=== PATIENT | male | born 1995 | race Caucasian/White ===

== ENCOUNTER 2017-09-30 02:19 | Emergency (ER) | payer MEDICAID, SELFPAY ==
[2017-09-30 02:22] VITALS: BP 140/83; PULSE 82; RESP 16; TEMP 37.1; O2SAT 98; BMI 23.2
--- NOTE | 2017-09-30 02:34 | ED.DCSUM_ITS ---
- ER Visit Summary Date of Service: 09/30/17 Chief Complaint: [] Sore throat History of Present Illness: The patient is a 21 M presents with sore throat for last 2 days gradual onset continuous moderate severity worse by swallowing. Relieved with Tylenol. Denies any associated symptoms. He does have a history of remote strep throat. Physical Examination: [] Vital signs reviewed General: Well-nourished well-developed Head: Normocephalic atraumatic Eyes: Pupils equal round and reactive to light extraocular movements intact ENT: TMs clear no hemotympanum no trauma. Pharynx is reddened without exudate. Tonsils are red without exudate. 2+ bilateral Neck: Nontender full range of motion Cardiovascular: Regular rate rhythm no murmurs normal S1-S2 Respiratory: No distress clear to auscultation bilaterally chest nontender Abdomen: Soft nontender nondistended normal bowel sounds no masses Back: Nontender no CVA tenderness Extremities: Nontender active range of motion ?4 extremities no trauma Skin: Normal color no trauma Neuro alert oriented cranial nerves II through XII intact normal strength sensation reflexes Test Results: [] Emergency Department Course and Treatment: [] At this time I discussed with the patient we could do a rapid strep test. He would rather be treated with antibiotics empirically and not wait for the exam. I think this is reasonable given the fact that he has bright red swollen tonsils and no respiratory symptoms. He was given amoxicillin and ibuprofen will continue these at home. He will also do salt water gargles. Treatment Plan: [] Disposition: [] Impression: [] Tonsillitis bilateral This note was generated with [employer] dictation software. It may contain incorrect words, spelling, and punctuation that were not noted in review of the chart prior to signing ED Disposition - Plan for ED Patient: Chief Complaint: Sore Throat Referrals: Cleve Fajardo [Primary Care Provider] -
--- NOTE | 2017-09-30 02:34 | ED.DEP ---
ED Disposition - Plan for ED Patient: Disposition: Home or Assisted Living Chief Complaint: Sore Throat Instructions: ED Tonsillitis Prescriptions: Amoxicillin 875 mg PO BID #14 tab Referrals: Cleve Fajardo [Primary Care Provider] -
[2017-09-30] MEDS: Ibuprofen 400 MG Tablet 800 MG PO (02:44)
[2017-09-30] MEDS: AMOXICILLIN 500 MG CAPSULE 1000 MG PO (02:44)
[2017-09-30 02:45] VITALS: BP 140/83; PULSE 82; RESP 16; O2SAT 98
== END 2017-09-30 02:51 | disposition home or self-care (01) ==
PROVIDERS: Emergency Provider Emergency Medicine; Family Provider Pediatrics; PCP Pediatrics
DX: J03.90 Acute tonsillitis, unspecified (principal); Z72.0 Tobacco use
CPT/HCPCS: 99283

== ENCOUNTER 2017-10-04 13:54 | Emergency (ER) | payer MEDICAID, SELFPAY ==
[2017-10-04 13:55] VITALS: BP 140/78; PULSE 66; RESP 16; TEMP 37; O2SAT 97; BMI 23.3
--- NOTE | 2017-10-04 14:11 | VDLE_ITS ---
Reason For Study: pain RIGHT GSV is normal. CFV is compressible, spontaneous, phasic, competent and demonstrates normal augmentation. FV is compressible, spontaneous, phasic, competent and demonstrates normal augmentation. POP V is compressible, spontaneous, phasic, competent and demonstrates normal augmentation. T/P Trunk is compressible. PTV is compressible. RT PerV is compressible. Procedure Exam performed portable in ED. The exam was diagnostic. A preliminary report was called and/or faxed to Dr. Cary. Interpretation Summary There is no evidence of right lower extremity deep vein thrombosis. Right greater saphenous vein appears patent and compressible segmentally. Ordering Physician: Trevor Cary Performed By: Aneudy Silva RVT
--- NOTE | 2017-10-04 15:05 | RAD_ITS ---
STUDY: X-RAY - RIGHT KNEE REASON FOR EXAM: Male, 21 years old. Pain. No known injury. TECHNIQUE: 4 view(s) of the knee. COMPARISON: None. FINDINGS: Normal visualized distal femur. Normal visualized proximal tibia and fibula. Normal proximal tibiofibular articulation. Normal medial femorotibial compartment. Normal lateral femorotibial compartment. Normal patellofemoral articulation. Small joint effusion. RAD/Knee 4 or More Views IMPRESSION: Small joint effusion. Electronically Signed: Niles Dudley MD at 15:28 EDT Tel [phone], Service support ,
--- NOTE | 2017-10-04 15:24 | ED.DCSUM_ITS ---
- ER Visit Summary Date of Service: 10/04/17 Chief Complaint: Right knee pain History of Present Illness: The patient is a 21 M with no primary care physician. He reports that his right knee pain that began yesterday. Some aching pain is 4-10 at worst and is pain-free currently. Is worsened by walking. Is relieved by ibuprofen. He denies any known injury. No fall, MVA, or change in activity. No paresthesias or weakness. Patient reports that he is currently on amoxicillin for strep throat. He states that following this his fever has resolved. His throat pain is now 6 out of 10 severity. He denies any other complaints. Patient is concerned that this may be from a DVT. He denies personal or family history of this. No recent travel. No chest pain or shortness of breath. Physical Examination: Vitals: Stable. Afebrile. General: Well-nourished and well-developed. Head: Normocephalic atraumatic. Neck: Supple, no lymphadenopathy. No JVD. Nontender. Cardiovascular: Regular rate and rhythm. No murmurs. Respiratory: No respiratory distress. Clear to auscultation bilaterally. Abdominal: Soft, nontender, nondistended, normal bowel sounds. No guarding, rebound, or peritoneal signs. Back: Nontender. Extremities: Mild diffuse tenderness palpation over both the anterior and posterior surface of his right knee. There is a moderate joint effusion. There is no overlying erythema or warmth to suggest a septic joint. He has good range of motion with minimal pain. No pain or ligament instability with anterior posterior drawer or mediolateral stress. Negative Elizabeth bilaterally. no edema. Skin: Normal color, no rash. Neurologic: Alert and oriented ?3. Cranial nerves II through XII are intact. Normal strength and sensation. Psych: Normal affect. Test Results: Doppler is negative. Right knee x-ray shows a small joint effusion and no fracture. Emergency Department Course and Treatment: Patient refused pain medications and arthrocentesis. Treatment Plan: Patient will be discharged on naproxen. Instructed to follow Dr. Ortiz in 1 week if not improving. Return to the emergency department for any worsening symptoms. Disposition: To home in improved and stable condition. Impression: 1. Right knee pain, acute. This note was generated with [employer] software. It may contain incorrect words, spelling, and punctuation that were not noted in review of the chart prior to signing ED Disposition - Plan for ED Patient: Disposition: Home or Assisted Living Chief Complaint: Lower Extremity Injury Instructions: ED Knee Pain [facility] Prescriptions: Naproxen [Naprosyn] 500 mg PO BID #14 tablet Referrals: Mary Jane Ortiz DO [STAFF PHYSICIAN] - 1 Week if not improving
== END 2017-10-04 15:51 | disposition home or self-care (01) ==
LOC: ED 14:31
PROVIDERS: Emergency Provider Emergency Medicine; Family Provider Pediatrics; PCP Pediatrics
DX: M25.561 Pain in right knee (principal); M25.461 Effusion, right knee; J02.9 Acute pharyngitis, unspecified; Z72.0 Tobacco use
CPT/HCPCS: 73564; 93971; 99282

== ENCOUNTER → 2017-10-07 16:03 | Outpatient (CLI) | payer MEDICAID, SELFPAY ==
[2017-10-07 17:24] LABS: Pathologist Comment May follow
[2017-10-07 17:30] LABS: Absolute Lymphocyte Count 1.95 X10^3/ul (0.83-4.51); Absolute Neutrophil Count 9.9 X10^3/uL (2.0-7.7); Basophil# 0.07 X10^3/uL; Basophil% 0.5 % (0-1); Eosinophil# 0.27 X10^3/uL; Hematocrit 43.4 % (40-54); Hemoglobin 15.3 g/dl (13.0-16.5); Lymphocyte # 1.95 X10^3/ul (4.0); Lymphocyte % 14.2 % (19-41); Mean Corp Hgb Conc 35.3 g/gl (32-36); Mean Corpuscular Hgb 31.7 pg (27.0-32.0); Mean Corpuscular Volume 89.9 fL (80-94); Mean Platelet Vol. 10.8 fl (6.2-12.0); Monocyte# 1.19 X10^3/uL; Monocyte% 8.7 % (0-10); Neutrophil # 9.89 X10^3/uL (2.7-7.7); Neutrophil % 72.2 % (47-70); POSITIVE COUNT YES; POSITIVE DIFFERENTIAL NO; POSITIVE MORPHOLOGY YES; Platelet Count 287 K/mm3 (150-450); RBC Distribution Width CV 12.5 % (11.6-14.6); RBC Distribution Width SD 40.9 fl (35.1-43.9); Red Blood Count 4.83 M/mm3 (4.6-6.2); White Blood Count 13.7 K/mm3 (4.4-11.0)
[2017-10-07 17:36] LABS: Erythrocyte Sedimentation Rate 15 mm/hr (0-15)
[2017-10-07 17:53] LABS: Synovial Fld Mononuclear WBC % 26.2 %; Synovial Fld Polynuclear WBC # 12.131 10^3/ul; Synovial Fld Polynuclear WBC % 73.8 %
[2017-10-07 18:20] LABS: CRP 6.85 mg/L (0.0-3.0)
[2017-10-07 19:19] LABS: Lymph 9 %; Monocyte /Synovial Fluid 4 %; Neutrophil 84 % (0-25); Other Cell /Synovial Fluid 3 %
[2017-10-07 19:20] LABS: AUTO B FLUID DILUENT BKGD CT WBC <0.1 RBC <0.01 (W<.1,R<.01); Source- Body Fluid SYNOVIAL
[2017-10-07 19:21] LABS: Appearance /Synovial Fluid Cloudy (CLEAR); Color / Synovial Fluid Yellow (Pale Yellow); RBC /Synovial Fluid 53 /mm3 (0); Synovial Fld Mononuclear WBC # 4.305 10^3/ul
[2017-10-11 11:15] LABS: Pathologist Review Reviewed
[2017-10-11 11:31] LABS: Pathologist Review Reviewed
== END ==
PROVIDERS: Family Provider Pediatrics; PCP Pediatrics; Visit Provider Physician Assistant Surgical
DX: M25.461 Effusion, right knee (principal)
CPT/HCPCS: 36415; 85025; 85652; 86140; 87070; 87075; 87205; 89050; 89051; 89060

== ENCOUNTER 2018-03-12 00:01 | Emergency (ER) | payer MEDICAID, SELFPAY ==
[2018-03-12 00:02] VITALS: BP 141/76; PULSE 74; RESP 16; TEMP 36.9; O2SAT 99; BMI 23.0
--- NOTE | 2018-03-12 00:37 | RAD_ITS ---
STUDY: X-RAY - LEFT HAND REASON FOR EXAM: Male, 22 years old. Patient was kicked while playing football. Pain in the first metacarpal and proximal fifth metacarpal regions. TECHNIQUE: 3 view(s) of the hand. COMPARISON: X-ray left wrist done today. FINDINGS: Normal radiocarpal articulation. Normal distal radioulnar joint. Normal visualized carpal bones. Normal carpal articulations Normal carpometacarpal articulation of the thumb. Normal second through fifth carpometacarpal joints. Normal metacarpi. Normal metacarpophalangeal joint of the thumb. Normal interphalangeal joint of the thumb. Normal proximal and distal phalanges of the thumb. Normal metacarpophalangeal joints of the second through fifth fingers. Normal proximal and distal interphalangeal joints of the second through fifth fingers. Normal phalanges of the second through fifth fingers. The soft tissue structures are unremarkable. RAD/Hand Min 3 Views IMPRESSION: Normal x-ray examination of the hand. Electronically Signed: Dakotah Ruiz MD at 1:08 EST , Service support ,
--- NOTE | 2018-03-12 00:37 | RAD_ITS ---
STUDY: X-RAY - LEFT WRIST REASON FOR EXAM: Male, 22 years old. Patient was kicked while playing football. Pain in the regions of the first and fifth metacarpals. TECHNIQUE: 3 view(s) of the wrist were obtained. COMPARISON: X-ray hand done today. FINDINGS: Normal visualized distal radius and ulna. Normal radiocarpal articulation. Normal distal radioulnar articulation. Normal carpal bones. Normal carpal articulations. Normal carpometacarpal articulation of the thumb. Normal second through fifth carpometacarpal articulations. Normal visualized metacarpal bones. The soft tissue structures are unremarkable. RAD/Wrist min 3 Views IMPRESSION: Normal x-ray examination of the wrist. Electronically Signed: Dakotah Ruiz MD at 1:08 EST , Service support ,
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
--- NOTE | 2018-03-12 01:35 | ED.DEP ---
ED Disposition - Plan for ED Patient: Chief Complaint: Upper Extremity Injury Instructions: ED Contusion Upper Ext Referrals: Care Physician,No Primary [Primary Care Provider] -
[2018-03-12] MEDS: Ibuprofen 200 MG Tablet 400 MG PO (01:45)
[2018-03-12 01:46] VITALS: RESP 18
== END 2018-03-12 01:46 | disposition home or self-care (01) ==
PROVIDERS: Emergency Provider Emergency Medicine
DX: S60.212A Contusion of left wrist, initial encounter (principal); W50.0XXA Accidental hit or strike by another person, initial encounter; Y93.9 Activity, unspecified; Y92.9 Unspecified place or not applicable; Z72.0 Tobacco use
CPT/HCPCS: 73110; 73130; 99283

== ENCOUNTER 2018-03-20 08:33 | Emergency (ER) | payer MEDICAID, SELFPAY ==
[2018-03-20 08:34] VITALS: BP 142/76; PULSE 56; RESP 18; TEMP 36.6; O2SAT 98; BMI 24.4
--- NOTE | 2018-03-20 08:54 | ED.VISSUMM ---
- ER Visit Summary Date of Service: 03/20/18 Chief Complaint: Left shoulder pain History of Present Illness: The patient is a 22 M peresenting with atraumatic left shoulder pain. It started gradually 1 week ago. It is worse with range of motion. He has trouble abducting above 90 degrees. He denies neck pain, weakness, or radicular symptoms. No paresthesias. No history of trauma or falls. Physical Examination: Minimal tenderness left shoulder posteriorly. Skin intact. No ecchymosis, erythema, or warmth. No neck tenderness. Strong distal pulse. Normal distal neurovascular examination. Test Results: Emergency Department Course and Treatment: I do not feel he needs imaging. I will refer him to orthopaedics. I will treat him with flexeril and naproxen. Treatment Plan: Disposition: Home stable Impression: Initial encounter left shoulder pain This note was generated with [employer] dictation software. It may contain incorrect words, spelling, and punctuation that were not noted in review of the chart prior to signing ED Disposition - Plan for ED Patient: Chief Complaint: Upper Extremity Injury Instructions: ED Sprain Shoulder Prescriptions: Ibuprofen [Motrin] 800 mg PO TID PRN PRN #20 tablet PRN Reason: Pain Cyclobenzaprine [Flexeril] 10 mg PO TID PRN #20 tablet PRN Reason: Muscle Spasm Referrals: Kris Lopez DO [STAFF PHYSICIAN] -
--- NOTE | 2018-03-20 09:01 | ED.DCSUM_ITS ---
- ER Visit Summary Date of Service: 03/20/18 Chief Complaint: Left shoulder pain History of Present Illness: The patient is a 22 M peresenting with atraumatic left shoulder pain. It started gradually 1 week ago. It is worse with range of motion. He has trouble abducting above 90 degrees. He denies neck pain, weakness, or radicular symptoms. No paresthesias. No history of trauma or falls. Physical Examination: Minimal tenderness left shoulder posteriorly. Skin intact. No ecchymosis, erythema, or warmth. No neck tenderness. Strong distal pulse. Normal distal neurovascular examination. Test Results: Emergency Department Course and Treatment: I do not feel he needs imaging. I will refer him to orthopaedics. I will treat him with flexeril and naproxen. Treatment Plan: Disposition: Home stable Impression: Initial encounter left shoulder pain This note was generated with [employer] dictation software. It may contain incorrect words, spelling, and punctuation that were not noted in review of the chart prior to signing ED Disposition - Plan for ED Patient: Chief Complaint: Upper Extremity Injury Instructions: ED Sprain Shoulder Prescriptions: Ibuprofen [Motrin] 800 mg PO TID PRN PRN #20 tablet PRN Reason: Pain Cyclobenzaprine [Flexeril] 10 mg PO TID PRN #20 tablet PRN Reason: Muscle Spasm Referrals: Kris Lopez DO [STAFF PHYSICIAN] -
--- OUTSIDE RECORDS SUMMARY | 2018-05-13 11:02 | XMS RPT_ITS ---
:1995 Author Organization OH[facility] Care Team Providers Name Role Phone JUANITO RUSH Attending Unavailable JUANITO RUSH Referring Unavailable JUANITO RUSH Referring Unavailable Casa PEGUERO (CARLENEC) Attending Unavailable Bhupendra Howard Attending Unavailable Katey Andrea Primary Care Unavailable Trevor Cary Attending Unavailable PATRICIA HANNA Primary Care Unavailable Meño Razo PA-C Attending Unavailable Meño Razo PA-C Referring Unavailable PATRICIA HANNA Primary Care Unavailable Leo Infante Attending Unavailable Primay Care Physicia, No Primary Care Unavailable Yg Bautista Attending Unavailable Onesimo Berger Attending Unavailable Juanito Rush Primary Care Unavailable Trevor Cary Attending Unavailable ISRAEL FAJARDO Primary Care Unavailable PROBLEMS PROBLEMS DATE TYPE CONDITION / CODE ATTENDING STATUS SOURCE 11/14/2017 Unknown M25.561 - Pain in Trevor Cary Active [facility] right knee / Community M25.561(ICD-10) Hospital Repository 11/10/2017 Unknown M79.661 - Pain in Leo Infante Active [facility] right lower leg / Community M79.661(ICD-10) Hospital Repository 07/30/2017 Active Other fatigue / NA Active [facility] R53.83(ICD-10) Main [place] Repository 07/19/2017 Active Syncope and NA Active [facility] collapse / Main [place] R55(ICD-10) Repository 07/19/2017 Active Palpitations / NA Active [facility] R00.2(ICD-10) Main [place] Repository PROCEDURES PROCEDURES No Procedure Records FoundRESULTS RESULTS PROGRESS Observed: 03/28/2018 Status: COMPLETED Source: [facility] 10:33 AM [facility] REPOSITORY HNO ID: [id number] Author: Casa Jones (Courtney) Sudhir Service: (none) Author Type: 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 Woke with it. Intermittent at first, throbbing whole day. Went to ED: talked about MRI. Does lift weights but not in a couple weeks. HISTORIES FAMILY HISTORY Problem Relation Age of Onset - Alcohol/Drug Brother - Colon Cancer Maternal Grandfather - Diabetes Maternal Grandfather - Coronary Artery Disease Maternal Grandfather - Heart Maternal Grandfather - Hypertension Maternal Grandfather - Diabetes Maternal Grandmother - Stroke Maternal Grandmother - Hypertension Brother PAST MEDICAL HISTORY Diagnosis Date - ADHD PAST SURGICAL HISTORY Procedure Laterality Date - NONE Social History Marital status: Single Spouse name: Years of education: Number of children: Social History Main Topics Smoking status: Heavy Tobacco Smoker Packs/day: 2.00 Years: 0.00 Types: Cigarettes Smokeless tobacco: Never Used Alcohol use: No Comment: occasionally Drug use: No There is no problem list on file for this patient. Current Outpatient Prescriptions: lisdexamfetamine (VYVANSE) 40 mg capsule Take 1 capsule by mouth as needed (pt reports prn) for up to 30 days. Disp: 30 capsule Rfl: 0 No current facility-administered medications for this visit. HPV VACCINE(1 - Male 3-dose series) due on 2008 MENINGOCOCCAL CONJUGATE(1 of 1 - 2-dose series) due on 2013 DTAP,TDAP,TD(1 - Tdap) due on 2016 ONE PNEUMOVAX PRIOR TO AGE 65 due on 2016 INFLUENZA(1) due on 12/17/2017 EXAM: BP 124/78 (BP Site: Left Arm, BP Position: Sitting, BP Cuff Size: Regular Adult) Pulse 60 Resp 16 Wt 86.2 kg (190 lb) BMI 26.13 kg/m? Pleasant well appearing young man in no acute distress. Alert and oriented all spheres. Normal affect and cognition. Speech normal. No deficits to learning or comprehension. Skin warm, dry, pink to lips and nailbeds. Normal turgor. Respirations regular and unlabored. Chest CTA. HRRR without murmur or gallop. Extrem: no clubbing, cyanosis, edema. Extremities are warm and pink with prompt capillary refill. Left shoulder with pain on abduction at 100-130 degrees. Negative mendiola, Speed's, scratch, lift off, drop arm, empty can. Good resistance to internal and external rotation. TTPs in anterio rna posterior shoulder muscles and upper traps. OMT: myofascial release to TTPS and HVLA to thoracic segments with moderate improvement but not resolution pain. Assessment: ASSESSMENT/PLAN: 1. Sprain of left shoulder, unspecified shoulder sprain type, initial encounter - ICD9: 840.9, ICD10: S43.402A Stretching and strengthening shoulder sheet provided and reviewed. Refill flexeril Ibup 800mg q6h with food F/u prn not improving 2 weeks. COURTNEY Valle Observed: 03/28/2018 Status: COMPLETED Source: [place] 10:[address] [facility] REPOSITORY Office Visit (FAMPWS) BRIAN HENAO ([id number]) 1995 M Date Time Provider Department 03/28/18 10:00 AM Casa PEGUERO) ROSA MARIA During your visit today, we recorded the following information about you: Pulse Respiration Blood pressure Weight 60/minute 16/minute 124/78 86.2 kg M Robert Peguero PA-C 03/28/2018 11:06 AM Signed 22 year old male with c/o left shoulder pain x 4 days. Woke with it. Intermittent at first, throbbing whole day. Went to ED: talked about MRI. Does lift weights but not in a couple weeks. HISTORIES FAMILY HISTORY Problem Relation Age of Onset - Alcohol/Drug Brother - Colon Cancer Maternal Grandfather - Diabetes Maternal Grandfather - Coronary Artery Disease Maternal Grandfather - Heart Maternal Grandfather - Hypertension Maternal Grandfather - Diabetes Maternal Grandmother - Stroke Maternal Grandmother - Hypertension Brother PAST MEDICAL HISTORY Diagnosis Date - ADHD PAST SURGICAL HISTORY Procedure Laterality Date - NONE Social History Marital status: Single Spouse name: Years of education: Number of children: Social History Main Topics Smoking status: Heavy Tobacco Smoker Packs/day: 2.00 Years: 0.00 Types: Cigarettes Smokeless tobacco: Never Used Alcohol use: No Comment: occasionally Drug use: No There is no problem list on file for this patient. Current Outpatient Prescriptions: lisdexamfetamine (VYVANSE) 40 mg capsule Take 1 capsule by mouth as needed (pt reports prn) for up to 30 days. Disp: 30 capsule Rfl: 0 No current facility-administered medications for this visit. HPV VACCINE(1 - Male 3-dose series) due on 2008 MENINGOCOCCAL CONJUGATE(1 of 1 - 2-dose series) due on 2013 DTAP,TDAP,TD(1 - Tdap) due on 2016 ONE PNEUMOVAX PRIOR TO AGE 65 due on 2016 INFLUENZA(1) due on 12/17/2017 EXAM: BP 124/78 (BP Site: Left Arm, BP Position: Sitting, BP Cuff Size: Regular Adult) Pulse 60 Resp 16 Wt 86.2 kg (190 lb) BMI 26.13 kg/m? Pleasant well appearing young man in no acute distress. Alert and oriented all spheres. Normal affect and cognition. Speech normal. No deficits to learning or comprehension. Skin warm, dry, pink to lips and nailbeds. Normal turgor. Respirations regular and unlabored. Chest CTA. HRRR without murmur or gallop. Extrem: no clubbing, cyanosis, edema. Extremities are warm and pink with prompt capillary refill. Left shoulder with pain on abduction at 100-130 degrees. Negative mendiola, Speed's, scratch, lift off, drop arm, empty can. Good resistance to internal and external rotation. TTPs in anterio rna posterior shoulder muscles and upper traps. OMT: myofascial release to TTPS and HVLA to thoracic segments with moderate improvement but not resolution pain. Assessment: ASSESSMENT/PLAN: 1. Sprain of left shoulder, unspecified shoulder sprain type, initial encounter - ICD9: 840.9, ICD10: S43.402A Stretching and strengthening shoulder sheet provided and reviewed. Refill flexeril Ibup 800mg q6h with food F/u prn not improving 2 weeks. COURTNEY Valle PA-C 03/28/2018 10:54 AM Signed Rest in a comfortable position. Avoid activities or positions which increase pain. Please review the sheet of exercises provided for stretching. No over head lifting, or extended arm pushing or pulling over the next few days. Moist heat generally also helps muscles to relax, You may apply it for 10-15 minutes every few hours if needed. Ice may also help similarly to block pain Call with a progress report over the next few days. Flexeril is a muscle relaxer which can cause drowsiness and may be habit forming if used regularly for extended periods. You should not drink alcohol, drive, or operate dangerous machinery while taking this medication. You may use Ibuprofen 800mg every 6-8 hours with food routinely until pain is fully resolved, then prn. Ibuprofen can cause stomach symptoms including ulceration, bleeding, nausea, pain, and diarrhea. Make sure to take it with food. If you are known to have allergy to anti-inflamatories medications, or have known kidney disease, make sure we know this before you take the medication. Referring Provider: SELF [200] Allergies As of Date: 03/28/2018 (No Known Allergies) Date Reviewed: 03/28/2018 Reviewed by: Dianne Avery LPN - Fully Assessed Reason for Visit: Pain (Shoulder Pain) [1343] Cmt: X 3-4 days, no known injury Primary Visit Diagnosis:Sprain of left shoulder, unspecified shoulder sprain type, initial encounter [S43.402A] Other Visit Diagnosis:Somatic dysfunction of spine, thoracic [M99.02] Order(s):cyclobenzaprine (FLEXERIL) 10 mg tabletTake 1 tablet by mouth three times daily as needed.Disp: 30 tabletRfl: 0 Prescriptions as of 03/28/2018 Sig: CYCLOBENZAPRINE 10 MG TABLET Take 1 tablet by mouth three * LISDEXAMFETAMINE 40 MG CAPSULE Take 1 capsule by mouth as ne* Problem List As Of Date: 03/28/2018 (None) Other instructions from your clinician: Rest in a comfortable position. Avoid activities or positions which increase pain. Please review the sheet of exercises provided for stretching. No over head lifting, or extended arm pushing or pulling over the next few days. Moist heat generally also helps muscles to relax, You may apply it for 10-15 minutes every few hours if needed. Ice may also help similarly to block pain Call with a progress report over the next few days. Flexeril is a muscle relaxer which can cause drowsiness and may be habit forming if used regularly for extended periods. You should not drink alcohol, drive, or operate dangerous machinery while taking this medication. You may use Ibuprofen 800mg every 6-8 hours with food routinely until pain is fully resolved, then prn. Ibuprofen can cause stomach symptoms including ulceration, bleeding, nausea, pain, and diarrhea. Make sure to take it with food. If you are known to have allergy to anti-inflamatories medications, or have known kidney disease, make sure we know this before you take the medication. Prescriptions ordered this encounter Disp Refills Start End CYCLOBENZAPRINE 10 MG TABLET 30 t* 0 03/28/2018 Route: ORAL Sig: Take 1 tablet by mouth three times daily as needed. Encounter Status:Closed by Casa PEGUERO PA-C on 03/28/18 EMERGENCY DEPARTMENT Observed: 03/20/2018 Status: F Source: [place] SUMMARY 9:05 AM [facility] REPOSITORY [facility] Medical Records Department [address] [place] [address] Emergency Department Summary 03/20/18 0854 MR#: [id number] Acct: [id number] Name: BRIAN HENAO Rep #: [id number] : 1995 22 From: Miki Berger MD PCP: Juanito Rush MD Status: REG ER - ER Visit Summary Date of Service: 03/20/18 Chief Complaint: Left shoulder pain History of Present Illness: The patient is a 22 M peresenting with atraumatic left shoulder pain. It started gradually 1 week ago. It is worse with range of motion. He has trouble abducting above 90 degrees. He denies neck pain, weakness, or radicular symptoms. No paresthesias. No history of trauma or falls. Physical Examination: Minimal tenderness left shoulder posteriorly. Skin intact. No ecchymosis, erythema, or warmth. No neck tenderness. Strong distal pulse. Normal distal neurovascular examination. Test Results: Emergency Department Course and Treatment: I do not feel he needs imaging. I will refer him to orthopaedics. I will treat him with flexeril and naproxen. Treatment Plan: Disposition: Home stable Impression: Initial encounter left shoulder pain This note was generated with [employer] dictation software. It may contain incorrect words, spelling, and punctuation that were not noted in review of the chart prior to signing ED Disposition - Plan for ED Patient: Chief Complaint: Upper Extremity Injury Instructions: ED Sprain Shoulder Prescriptions: Ibuprofen [Motrin] 800 mg PO TID PRN PRN #20 tablet PRN Reason: Pain Cyclobenzaprine [Flexeril] 10 mg PO TID PRN #20 tablet PRN Reason: Muscle Spasm Referrals: Kris Lopez DO [STAFF PHYSICIAN] - What to do if you have Problems For any increased pain, shortness of breath, bleeding, nausea or vomiting, chest pain, or any unexpected problems, contact your Primary Care Provider. Call [facility] ([phone]) or report to the closest Emergency Room. Call 911 if necessary. 03/20/18904 <Electronically signed by Miki Berger MD> Date Miki Berger MD Cosigner Signature (If Indicated): Date CC: Juanito Rush MD DISCHARGE INSTRUCTION Observed: 03/12/2018 Status: F Source: [facility] 1:36 AM [facility] Medical Records Department [address] [place] [address] Discharge Instruction 03/12/18134 MR#: [id number] Acct: [id number] Name: BRIAN HENAO Rep #: [id number] : 1995 22 From: Yg Bautista MD PCP: Care Physician, No Primary Status: REG ER ED Disposition - Plan for ED Patient: Chief Complaint: Upper Extremity Injury Instructions: ED Contusion Upper Ext Referrals: Care Physician,No Primary [Primary Care Provider] - What to do if you have Problems For any increased pain, shortness of breath, bleeding, nausea or vomiting, chest pain, or any unexpected problems, contact your Primary Care Provider. Call [facility] ([phone]) or report to the closest Emergency Room. Call 911 if necessary. 03/12/18135 <Electronically signed by Yg Bautista MD> Date Yg Marshall Signature (If Indicated): Date CC: No Primary Care Physician EMERGENCY DEPARTMENT Observed: 03/12/2018 Status: F Source: [place] SUMMARY 1:35 AM [facility] Medical Records Department [address] [place] [address] Emergency Department Summary 03/12/18132 MR#: [id number] Acct: [id number] Name: BRIAN HENAO Rep #: [id number] : 1995 22 From: Yg Bautista MD PCP: Michelle Physician, No Primary Status: REG ER - ER Visit Summary Date of Service: 03/12/18 Chief Complaint: Left wrist pain and swelling History of Present Illness: The patient is a 22 M who states that he was holding a ball that his girlfriend went to kick it and excellently kicked him in the left wrist. This occurred about 6 hours before presentation. He complains of pain along the left wrist and base of the left hand. No paresthesias weakness loss of function. No other injuries. Physical Examination: Afebrile vitals unremarkable Moist mucous membranes Heart regular rate and rhythm Lungs clear Patient does have some pain on palpation of the left wrist and hand there is no deformity has normal sensation active full range of motion brisk capillary refill easily palpable radial pulse no pain at the shoulder or elbow Test Results: X-rays of the hand and wrist are normal Emergency Department Course and Treatment: Patient was given ibuprofen for pain. He was advised on supportive care including rest ice and elevation. He was discharged home Treatment Plan: [] Disposition: Discharge Impression: Left wrist contusion This note was generated with [employer] dictation software. It may contain incorrect words, spelling, and punctuation that were not noted in review of the chart prior to signing ED Disposition - Plan for ED Patient: Chief Complaint: Upper Extremity Injury Referrals: Care Physician,No Primary [Primary Care Provider] - What to do if you have Problems For any increased pain, shortness of breath, bleeding, nausea or vomiting, chest pain, or any unexpected problems, contact your Primary Care Provider. Call [facility] ([phone]) or report to the closest Emergency Room. Call 911 if necessary. 03/12/18 0135 <Electronically signed by Yg Bautista MD> Date Yg Bautista MD Cosigner Signature (If Indicated): Date CC: No Primary Care Physician HAND MIN 3 VIEWS Observed: 03/12/2018 Status: F Source: [place] 12:37 AM [facility] REPOSITORY [facility] Imaging Services [address] [place] [address] Hand Min 3 Views MR#: [id number] Acct: [id number] Name: BRIAN HENAO Rep #: [id number] : 1995 M 22 From: Dakotah Ruiz MD PCP: Care Physician, No Primary Status: REG ER Study: Hand Min 3 Views Date of Exam: 03/12/18 Exam# [id number] Ordering Dr: Yg Bautista MD STUDY: X-RAY - LEFT HAND REASON FOR EXAM: Male, 22 years old. Patient was kicked while playing football. Pain in the first metacarpal and proximal fifth metacarpal regions. TECHNIQUE: 3 view(s) of the hand. COMPARISON: X-ray left wrist done today. FINDINGS: Normal radiocarpal articulation. Normal distal radioulnar joint. Normal visualized carpal bones. Normal carpal articulations Normal carpometacarpal articulation of the thumb. Normal second through fifth carpometacarpal joints. Normal metacarpi. Normal metacarpophalangeal joint of the thumb. Normal interphalangeal joint of the thumb. Normal proximal and distal phalanges of the thumb. Normal metacarpophalangeal joints of the second through fifth fingers. Normal proximal and distal interphalangeal joints of the second through fifth fingers. Normal phalanges of the second through fifth fingers. The soft tissue structures are unremarkable. RAD/Hand Min 3 Views IMPRESSION: Normal x-ray examination of the hand. Electronically Signed: Dakotah Ruiz MD at 1:08 EST , Service support , CC: No Primary Care Physician; Yg Bautista MD Freight Brake Operator: Signed WRIST MIN 3 VIEWS Observed: 03/12/2018 Status: F Source: [place] 12:37 AM [facility] REPOSITORY [facility] Imaging Services [address] [place] [address] Wrist min 3 Views MR#: [id number] Acct: [id number] Name: BRIAN HENAO Rep #: [id number] : 1995 M 22 From: Dakotah Ruiz MD PCP: Care Physician, No Primary Status: REG ER Study: Wrist min 3 Views Date of Exam: 03/12/18 Exam# [id number] Ordering Dr: Yg Bautista MD STUDY: X-RAY - LEFT WRIST REASON FOR EXAM: Male, 22 years old. Patient was kicked while playing football. Pain in the regions of the first and fifth metacarpals. TECHNIQUE: 3 view(s) of the wrist were obtained. COMPARISON: X-ray hand done today. FINDINGS: Normal visualized distal radius and ulna. Normal radiocarpal articulation. Normal distal radioulnar articulation. Normal carpal bones. Normal carpal articulations. Normal carpometacarpal articulation of the thumb. Normal second through fifth carpometacarpal articulations. Normal visualized metacarpal bones. The soft tissue structures are unremarkable. RAD/Wrist min 3 Views IMPRESSION: Normal x-ray examination of the wrist. Electronically Signed: Dakotah Ruiz MD at 1:08 EST , Service support , CC: No Primary Care Physician; Yg Bautista MD Freight Brake Operator: Signed CBC W/DIFF, AUTOMATED Collected: 10/07/2017 Status: C Source: [place] 4:13 PM [facility] REPOSITORY TYPE CODE TESTS RESULT OUT OF RANGE REFERENCE UNITS LAB L100.1000 4.4-11.0 K/mm3 High WBC 13.7 LAB L100.1200 4.6-6.2 M/mm3 Normal RBC 4.83 LAB L100.1300 13.0-16.5 g/dl Normal HGB 15.3 LAB L100.1400 40-54 % Normal HCT 43.4 LAB L100.1500 80-94 fL Normal MCV 89.9 LAB L100.1600 27.0-32.0 pg Normal MCH 31.7 LAB L100.1700 32-36 g/gl Normal MCHC 35.3 LAB L100.1810 11.6-14.6 % Normal RDW CV 12.5 LAB L100.1820 35.1-43.9 fl Normal RDW SD 40.9 LAB L100.1900 150-450 K/mm3 Normal PLT 287 LAB L100.2000 6.2-12.0 fl Normal MPV 10.8 LAB L100.2100 47-70 % High NEUT% 72.2 LAB L100.2200 19-41 % Low LY% 14.2 LAB L100.2300 0-10 % Normal MONO% 8.7 LAB L100.2400 0-5 % Normal EO% 2.0 LAB L100.2500 0-1 % Normal BASO% 0.5 LAB L100.2550 0.0-0.9 % High IM GRAN % 2.400 Result Comment: IG% - Immature Granulocytes (promyelocytes, myelocytes and metamyelocytes) > 1% indicates that a LEFT SHIFT is Present. LAB L100.2620 2.0-7.7 X10 3/uL High Absolute Neut 9.9 LAB L100.2720 0.83-4.51 X10 3/ul Normal Absolute Lymph 1.95 LAB L100.9900 Normal PATH REV Reviewed Result Comment: Neutrophilic leukocytosis with left shift Clinical correlation necessary. Hakeem Doty M.D. 10/11/17 Pathologist comment added AMENDED REPORT 10/11/17 1126 PATH REV previously reported as: August radames Performed By: #### L100.0100, L101.9900 #### [facility] [place], [address] ERYTHROCYTE SED RATE Collected: 10/07/2017 Status: F Source: [place] 4:13 PM [facility] REPOSITORY TYPE CODE TESTS RESULT OUT OF RANGE REFERENCE UNITS LAB L102.0000 0-15 mm/hr Normal SED RATE 15 Performed By: #### L100.0100, L101.9900 #### [facility] [address] [place], [place], [address] CRP Collected: 10/07/2017 Status: F Source: [place] 4:13 PM [facility] REPOSITORY Order Comment: DR. VERDUZCO WANTS CALLED RESULTS WHEN THEY ARE IN, [id number] TYPE CODE TESTS RESULT OUT OF RANGE REFERENCE UNITS LAB L501.6710 0.0-3.0 mg/L High 6.85 C-REACTIVE PROT Result Comment: C-Reactive Protein (CRP) provides useful information for the diagnosis, therapy and monitoring of inflammatory processes and associated diseases. For the evaluation of Relative Risk for Cardiovascular Disease, a High Sensitivity CRP (HSCRP) should be ordered. Performed By: #### L501.6710 #### [facility] [address] [place], [place], [address] SYNOVIAL FLUID RBC, Collected: 10/07/2017 Status: F Source: [place] WBC AND DIFF 12:00 AM [facility] REPOSITORY TYPE CODE TESTS RESULT OUT OF RANGE REFERENCE UNITS LAB L200.5050 0.000-0.000 10 3 uL High SYN Tot 17.[address] Result Comment: This is the Total Number of Nucleated Cell Types in the Body Fluid. LAB L200.5200 0.000-0.002 10 3uL High SYNOVIAL WBC 17.1140 LAB L200.5260 % SYBF Normal PMN WBC% 73.8 LAB L200.5270 10 3/ul SYBF Normal PMN WBC# 12.131 LAB L200.5280 % SYBF Normal MN WBC% 26.2 LAB L200.5800 PATH Normal COM/SYFL May follow LAB L200.5300 0-25 % High NEUTROPHIL 84 LAB L200.5400 % LYMPH Normal 9 LAB L200.5500 % MONO Normal 4 LAB L200.5700 % OTHER Normal CELL /SYN 3 LAB L200.4600 Normal SYNOVIAL SOURCE UNKNOWN LAB L200.4900 Pale Yellow Normal SYNOVIAL COLOR Yellow LAB L200.5000 CLEAR Normal SYNOVIAL ANGUS. Cloudy LAB L200.5100 0 /mm3 High SYNOVIAL RBC 53 LAB L200.5290 10 3/ul SYBF Normal MN WBC# 4.305 Performed By: #### L200.0400, L200.4175 #### [facility] [address] [place], [address] CRYSTALS, BODY FLUID Collected: 10/07/2017 Status: C Source: [place] 12:00 AM [facility] REPOSITORY TYPE CODE TESTS RESULT OUT OF RANGE REFERENCE UNITS LAB L200.4200 Normal SEE PATH REV CRYSTALS/BF LAB L200.4225 Normal SYNOVIAL SOURCE/BF LAB L200.6020 Normal PATH Reviewed REV Result Comment: Negative for malignant cells and crystals Acute inflammation Hakeem Doty M.D. 10/11/17 Pathologist comment added AMENDED REPORT 10/11/17 1115 PATH REV previously reported as: Will follow Performed By: #### L200.0400, L200.4175 #### [facility] [address] [place], [address] Observed: 10/07/2017 Status: F Source: [place] CULTURE, BODY FLUID 12:00 AM [facility] REPOSITORY List Antibiotics Last 48 Hours? UNK List Antibiotics to be Started? UNK Gram Stain Centrifuged Specimen? Culture performed on centrifuged specimen Gram Stain 1+ White Blood Cells No organisms seen Body Fluid Cult NO GROWTH IN 14 DAYS Cult, Anaerobic No anaerobic bacteria isolated. Performed By: #### M100.1300 #### [facility] [address] [facility] [place], [address] EMERGENCY DEPARTMENT Observed: 10/05/2017 Status: F Source: [place] SUMMARY 8:47 AM [facility] REPOSITORY [facility] Medical Records Department [address] [place] [address] Emergency Department Summary 10/04/17 1513 MR#: [id number] Acct: [id number] Name: BRIAN HENAO Rep #: [id number] : 1995 21 From: Trevor Cary MD PCP: PATRICIA HANNA Status: DEP ER - ER Visit Summary Date of Service: 10/04/17 Chief Complaint: Right knee pain History of Present Illness: The patient is a 21 M with no primary care physician. He reports that his right knee pain that began yesterday. Some aching pain is 4-10 at worst and is pain-free currently. Is worsened by walking. Is relieved by ibuprofen. He denies any known injury. No fall, MVA, or change in activity. No paresthesias or weakness. Patient reports that he is currently on amoxicillin for strep throat. He states that following this his fever has resolved. His throat pain is now 6 out of 10 severity. He denies any other complaints. Patient is concerned that this may be from a DVT. He denies personal or family history of this. No recent travel. No chest pain or shortness of breath. Physical Examination: Vitals: Stable. Afebrile. General: Well-nourished and well-developed. Head: Normocephalic atraumatic. Neck: Supple, no lymphadenopathy. No JVD. Nontender. Cardiovascular: Regular rate and rhythm. No murmurs. Respiratory: No respiratory distress. Clear to auscultation bilaterally. Abdominal: Soft, nontender, nondistended, normal bowel sounds. No guarding, rebound, or peritoneal signs. Back: Nontender. Extremities: Mild diffuse tenderness palpation over both the anterior and posterior surface of his right knee. There is a moderate joint effusion. There is no overlying erythema or warmth to suggest a septic joint. He has good range of motion with minimal pain. No pain or ligament instability with anterior posterior drawer or mediolateral stress. Negative Elizabeth bilaterally. no edema. Skin: Normal color, no rash. Neurologic: Alert and oriented 3. Cranial nerves II through XII are intact. Normal strength and sensation. Psych: Normal affect. Test Results: Doppler is negative. Right knee x-ray shows a small joint effusion and no fracture. Emergency Department Course and Treatment: Patient refused pain medications and arthrocentesis. Treatment Plan: Patient will be discharged on naproxen. Instructed to follow Dr. Ortiz in 1 week if not improving. Return to the emergency department for any worsening symptoms. Disposition: To home in improved and stable condition. Impression: 1. Right knee pain, acute. This note was generated with [employer] software. It may contain incorrect words, spelling, and punctuation that were not noted in review of the chart prior to signing ED Disposition - Plan for ED Patient: Disposition: Home or Assisted Living Chief Complaint: Lower Extremity Injury Instructions: ED Knee Pain UKO Prescriptions: Naproxen [Naprosyn] 500 mg PO BID #14 tablet Referrals: Mary Jane Ortiz DO [STAFF PHYSICIAN] - 1 Week if not improving What to do if you have Problems For any increased pain, shortness of breath, bleeding, nausea or vomiting, chest pain, or any unexpected problems, contact your Primary Care Provider. Call [facility] ([phone]) or report to the closest Emergency Room. Call 911 if necessary. 10/05/17 0847 <Electronically signed by Trevor Cary MD> Date Trevor Cary MD Cosigner Signature (If Indicated): Date CC: PATRICIA HANNA VENOUS DUPLEX LOWER Observed: 10/04/2017 Status: F Source: [place] EXTREMITY 6:27 PM [facility] [place] REPOSITORY [facility] Cardiovascular Services [address] [place] [address] Venous Duplex US, Unilateral 10/04/17 1420 MR#: [id number] Acct: [id number] Name: BRIAN HENAO Rep #: [id number] : 1995 21 From: Leo Infante MD Attending Dr: Status: DEP ER Ordering Dr: Trevor Cary MD Date: 10/04/17 Location: ED Sex: M C Admitted: Reason For Study: pain RIGHT GSV is normal. CFV is compressible, spontaneous, phasic, competent and demonstrates normal augmentation. FV is compressible, spontaneous, phasic, competent and demonstrates normal augmentation. POP V is compressible, spontaneous, phasic, competent and demonstrates normal augmentation. T/P Trunk is compressible. PTV is compressible. RT PerV is compressible. Procedure Exam performed portable in ED. The exam was diagnostic. A preliminary report was called and/or faxed to Dr. Cary. Interpretation Summary There is no evidence of right lower extremity deep vein thrombosis. Right greater saphenous vein appears patent and compressible segmentally. Ordering Physician: Trevor Cary Performed By: Aneudy Silva Scott 10/04/171826 Date Leo Infante MD CC: Trevor Cary MD; PATRICIA HANNA Date Dictated: 10/04/17 1420 Date Transcribed: 10/04/171826 Freight Brake Operator: Signed KNEE 4 OR MORE Observed: 10/04/2017 Status: F Source: [place] VIEWS 2:12 PM [facility] REPOSITORY [facility] Imaging Services [address] [place] [address] Knee 4 or More Views MR#: [id number] Acct: [id number] Name: HENAOBRIAN Rep #: [id number] : 1995 M 21 From: Niles Dudley MD PCP: PATRICIA HANNA Status: REG ER Study: Knee 4 or More Views Date of Exam: 10/04/17 Exam# [id number] Ordering Dr: Trevor Cary MD STUDY: X-RAY - RIGHT KNEE REASON FOR EXAM: Male, 21 years old. Pain. No known injury. TECHNIQUE: 4 view(s) of the knee. COMPARISON: None. FINDINGS: Normal visualized distal femur. Normal visualized proximal tibia and fibula. Normal proximal tibiofibular articulation. Normal medial femorotibial compartment. Normal lateral femorotibial compartment. Normal patellofemoral articulation. Small joint effusion. RAD/Knee 4 or More Views IMPRESSION: Small joint effusion. Electronically Signed: Niles Dudley MD at 15:28 EDT Tel [phone], Service support , CC: Trevor Cary MD; PATRICIA HANNA Freight Brake Operator: Signed EMERGENCY DEPARTMENT Observed: 09/30/2017 Status: F Source: [place] SUMMARY 5:54 AM [facility] Medical Records Department [address] [place] [address] Emergency Department Summary 09/30/17 0233 MR#: [id number] Acct: [id number] Name: BRIAN HENAO Rep #: [id number] : 1995 21 From: Bhupendra Howard MD PCP: Katey Andrea MD Status: DEP ER - ER Visit Summary Date of Service: 09/30/17 Chief Complaint: [] Sore throat History of Present Illness: The patient is a 21 M presents with sore throat for last 2 days gradual onset continuous moderate severity worse by swallowing. Relieved with Tylenol. Denies any associated symptoms. He does have a history of remote strep throat. Physical Examination: [] Vital signs reviewed General: Well-nourished well-developed Head: Normocephalic atraumatic Eyes: Pupils equal round and reactive to light extraocular movements intact ENT: TMs clear no hemotympanum no trauma. Pharynx is reddened without exudate. Tonsils are red without exudate. 2+ bilateral Neck: Nontender full range of motion Cardiovascular: Regular rate rhythm no murmurs normal S1-S2 Respiratory: No distress clear to auscultation bilaterally chest nontender Abdomen: Soft nontender nondistended normal bowel sounds no masses Back: Nontender no CVA tenderness Extremities: Nontender active range of motion 4 extremities no trauma Skin: Normal color no trauma Neuro alert oriented cranial nerves II through XII intact normal strength sensation reflexes Test Results: [] Emergency Department Course and Treatment: [] At this time I discussed with the patient we could do a rapid strep test. He would rather be treated with antibiotics empirically and not wait for the exam. I think this is reasonable given the fact that he has bright red swollen tonsils and no respiratory symptoms. He was given amoxicillin and ibuprofen will continue these at home. He will also do salt water gargles. Treatment Plan: [] Disposition: [] Impression: [] Tonsillitis bilateral This note was generated with [employer] dictation software. It may contain incorrect words, spelling, and punctuation that were not noted in review of the chart prior to signing ED Disposition - Plan for ED Patient: Chief Complaint: Sore Throat Referrals: Israel Fajardo [Primary Care Provider] - What to do if you have Problems For any increased pain, shortness of breath, bleeding, nausea or vomiting, chest pain, or any unexpected problems, contact your Primary Care Provider. Call [facility] ([phone]) or report to the closest Emergency Room. Call 911 if necessary. 09/30/17 0554 <Electronically signed by Bhupendra Howard MD> Date Bhupendra Howard MD Cosigner Signature (If Indicated): Date CC: Katey Andrea MD DISCHARGE INSTRUCTION Observed: 09/30/2017 Status: F Source: SHAH[place] 5:54 AM [facility] REPOSITORY [facility] Medical Records Department [address] [place] [address] Discharge Instruction 09/30/17 0234 MR#: [id number] Acct: [id number] Name: BRIAN HENAO Rep #: [id number] : 1995 21 From: Bhupendra Howard MD PCP: Katey Andrea MD Status: DEP ER ED Disposition - Plan for ED Patient: Disposition: Home or Assisted Living Chief Complaint: Sore Throat Instructions: ED Tonsillitis Prescriptions: Amoxicillin 875 mg PO BID #14 tab Referrals: Israel Fajardo [Primary Care Provider] - What to do if you have Problems For any increased pain, shortness of breath, bleeding, nausea or vomiting, chest pain, or any unexpected problems, contact your Primary Care Provider. Call [facility] ([phone]) or report to the closest Emergency Room. Call 911 if necessary. 09/30/17 0554 <Electronically signed by Bhupendra Howard MD> Date Bhupendra Howard MD Cosigner Signature (If Indicated): Date CC: Katey Andrea MD CBC AND DIFFERENTIAL Collected: 07/30/2017 Status: F Source: TERRY 12:02 PM [facility] REPOSITORY TYPE CODE TESTS RESULT OUT OF REFERENCE UNITS RANGE LAB WBC 3.70-11.00 k/uL WBC 7.39 LAB RBC 4.20-6.00 m/uL RBC 4.97 LAB HGB 13.0-17.0 g/dL Hemoglobin 15.5 LAB HCT 39.0-51.0 % Hematocrit 46.2 LAB MCV 80.0-100.0 fL MCV 93.0 LAB MCH 26.0-34.0 pG MCH 31.2 LAB MCHC 30.5-36.0 g/dL MCHC 33.5 LAB RDWCV 11.5-15.0 % RDW-CV 12.9 LAB PLTCT 150-400 k/uL Platelet Count 217 LAB MPV 9.0-12.7 fL MPV 11.8 LAB ANEUT % Neut% 51.2 LAB AANEUT 1.45-7.50 k/uL Abs Neut 3.78 LAB ALYMP % Lymph% 32.6 LAB AALYMP 1.00-4.00 k/uL Abs Lymph 2.41 LAB AMONO % Crowley% 10.4 LAB AAMONO <0.87 k/uL Abs Crowley 0.77 LAB AEOS % Eosin% 4.9 LAB AAEOS <0.46 k/uL Abs Eosin 0.36 LAB ABASO % Baso% 0.9 LAB AABASO <0.11 k/uL Abs Baso 0.07 LAB AUNRBC 0 /100 WBC NRBCs 0.0 LAB ABNRBC <0.01 k/uL Absolute nRBC <0.01 LAB DTYP DTYPE Auto Diff Performed By: #### CBCDIF, CMP, TSH, FT4, T3, WSR #### [facility] [address] [place] [id number] COMP METABOLIC PANEL Collected: 07/30/2017 Status: F Source: TERRY 12:[address] [facility] REPOSITORY TYPE CODE TESTS RESULT OUT OF REFERENCE UNITS RANGE LAB TP 6.3-8.0 g/dL Protein, Total 7.6 LAB ALB 3.9-4.9 g/dL Albumin High 5.1 LAB CA 8.5-10.2 mg/dL Calcium, Total 10.0 LAB TBIL 0.2-1.3 mg/dL Bilirubin, Total 0.4 LAB ALKP 36-108 U/L Alkaline Phosphatase 58 LAB AST 14-40 U/L AST 24 LAB GLU 74-99 mg/dL Glucose High 105 Result Comment: The [place] [employer] Association (ADA) provides guidance for cutoff values for fasting glucose and random glucose. The ADA defines fasting as no caloric intake for at least 8 hours. Fas ting plasma glucose results between 100 to 125 mg/dL indicate increased risk for diabetes (prediabetes). Fasting plasma glucose results greater than or equal to 126 mg/dL meet the criteria for diagnosis of diabetes. In the absence of unequivocal hyperglycemia, results should be confirmed by repeat testing. In a patient with classic symptoms of hyperglycemia or hyperglycemic crisis, random plasma glucose results greater than or equal to 200 mg/dL meet the criteria for diagnosis of diabetes. Reference: Standards of Medical Care in Diabetes 2016, [place] [employer] Association. Diabetes Care. 2016.39(Suppl 1). LAB BUN 9-24 mg/dL BUN 13 LAB CRET 0.73-1.22 mg/dL Creatinine 0.86 LAB NA 136-144 mmol/L Sodium 141 LAB K 3.7-5.1 mmol/L Potassium 4.0 LAB CL 97-105 mmol/L Chloride 100 LAB CO2 22-30 mmol/L CO2 27 LAB AGAP 9-18 mmol/L Anion Gap 14 LAB ALT 10-54 U/L ALT 29 LAB GFRAA eGFR- Amer. >60 LAB GFRNAA . eGFR-All Other Races >60 Result Comment: eGFR (Estimated GFR) Units of measure: mL/min/1.73 meters squared eGFR is derived from the reexpressed MDRD Study equation using the following parameters: serum creatinine, age, gender and race. The creatinine assay has been calibrated to be traceable to IDMS. An eGFR <60 mL/min/1.73m2 for >3 months is consistent with chronic kidney disease. Refer to KDOQI guidelines for clinical interpretation. In patients with unstable renal function, e.g. those with acute kidney injury, the eGFR may not accurately reflect actual GFR. Performed By: #### CBCDIF, CMP, TSH, FT4, T3, WSR #### [facility] [address] [place] [address] TSH Collected: 07/30/2017 Status: F Source: TERRY 12:[address] [facility] REPOSITORY TYPE CODE TESTS RESULT OUT OF RANGE REFERENCE UNITS LAB TSH 0.400-5.500 uU/mL TSH 0.754 Performed By: #### CBCDIF, CMP, TSH, FT4, T3, WSR #### [facility] [address] [place] [address] FREE T4 Collected: 07/30/2017 Status: F Source: TERRY 12:[address] [facility] REPOSITORY TYPE CODE TESTS RESULT OUT OF RANGE REFERENCE UNITS LAB FT4 0.9-1.7 ng/dL Free T4 1.1 Performed By: #### CBCDIF, CMP, TSH, FT4, T3, WSR #### [facility] [address] [place] [address] T3 Collected: 07/30/2017 Status: F Source: [facility] 12:02 PM [facility] REPOSITORY TYPE CODE TESTS RESULT OUT OF RANGE REFERENCE UNITS LAB T3 79-165 ng/dL T3 123 Performed By: #### CBCDIF, CMP, TSH, FT4, T3, WSR #### [facility] [address] [place], [place] [address] SED RATE WESTERGREN Collected: 07/30/2017 Status: F Source: [place]ERRY 12:[address] [facility] REPOSITORY TYPE CODE TESTS RESULT OUT OF REFERENCE UNITS RANGE LAB WSR 0-15 mm/hr Sed Rate Westergren 2 Performed By: #### CBCDIF, CMP, TSH, FT4, T3, WSR #### [facility] [address] [place], [place] [address] PROGRESS Observed: 07/19/2017 Status: COMPLETED Source: TERRY 2:[address] [facility] REPOSITORY HNO ID: [id number] Author: Juanito Rush Service: (none) Author Type: Physician Type: Progress Notes Filed: 07/19/2017 3:29 PM Note Text: Patient presents with: Establish Care HPI: Patient presents today for office visit for establishing care. ADD: Current Treatment: vyvanse. Using prn. Feels treatment is working well: Using it when he needs it at work. Helps to keep him focused. . Weight loss: No. Insomnia: No. GASTROENTEROLOGY complaints: No. Tremor: No. Mood disorder: No. Chest pain/Palpitations: Initially had it while on it. Had cardiac work up. Went away Aware of risks associated with controlled substance use: Yes. Hx of misuse/abuse/diversion of meds: Yes. OARRS website checked and validated. All prescriptions have been APPROPRIATELY filled. No suspicious activity was identified.- 07/19/2017 by Juanito Rush MD Has not taken any in a while. Relates having some episodes of dizziness or lightheadedness on and off for some time. Not actually syncopal. Never dizzy while laying down. No headaches. Eyes feel funny at times. Feet occasionally feel edematous Was seen in er once and was told his thyroid was questionably abnormal No focal numbness or weakness. Derm: has recurrent acne type cysts around ears. MEDICATIONS: Current Outpatient Prescriptions: lisdexamfetamine (VYVANSE) 40 mg capsule Take 40 mg by mouth as needed (pt reports prn). No current facility-administered medications for this visit. ALLERGIES: ALLERGIES No Known Allergies PAST MEDICAL HISTORY Diagnosis Date - ADHD No past surgical history on file. FAMILY HISTORY Problem Relation Age of Onset - Alcohol/Drug Brother - Colon Cancer Maternal Grandfather - Diabetes Maternal Grandfather - Coronary Artery Disease Maternal Grandfather - Heart Maternal Grandfather - Hypertension Maternal Grandfather - Diabetes Maternal Grandmother - Stroke Maternal Grandmother - Hypertension Brother Social History Marital status: Single Spouse name: Years of education: Number of children: Social History Main Topics Smoking status: Light Tobacco Smoker Packs/day: 0.00 Years: 0.00 Types: Cigarettes Smokeless status: Never Used Alcohol use: No Comment: occasionally Drug use: No Reviewed current medications, allergies, past medical history, surgical history, family history and social history today. REVIEW OF SYSTEMS All other reviewed and negative other than HPI. HEALTH MAINTENANCE: Reviewed health maintenance issues today and recommended the following in detail. - believes all of his immunizations are up to date. VITALS: BP 116/70 Pulse (!) 48 Temp 36.6 ?C (97.9 ?F) Resp 12 Ht 181.6 cm (5' 11.5) Wt 78 kg (172 lb) BMI 23.65 kg/m2 Last 4 Encounter Wt Readings: Date: Wt: 07/19/2017 78 kg (172 lb) (74 %, Z= 0.64)* 08/12/2014 72.6 kg (160 lb) (78 %, Z= 0.76)* PHYSICAL EXAMINATION: General appearance: Well appearing, alert, in no acute distress, well-hydrated, well nourished. Skin: Skin color, texture, turgor normal, no suspicious rashes or lesions. Several cysts around ears. Head: Normocephalic, no masses, lesions, tenderness or abnormalities Eyes: Anicteric sclera. Pupils are equally round and reactive to light. Extraocular movements are intact. No nystagmus Ears: External ears normal, canals clear Nose/Sinuses: Nares normal, septum midline, mucosa normal, no drainage or sinus tenderness Oropharynx: Lips, mucosa, and tongue normal, teeth and gums normal, oropharynx normal Neck: Supple, no adenopathy; thyroid symmetric, normal size, no bruits Lungs: Lungs clear to auscultation. No wheezing, rhonchi, rales Heart: RRR without murmur, gallop, or rubs. No ectopy Abdomen: Normal abdominal exam, Abdomen soft, non-tender. Bowel sounds normal. No masses, organomegaly Extremities: No deformities, edema, skin discoloration, clubbing or cyanosis. Good capillary refill. Musculoskeletal: No joint swelling, deformity, or tenderness Peripheral pulses: Normal Neuro: Gait normal. Reflexes normal and symmetric. Sensation grossly intact. ASSESSMENT/PLAN: 1. Attention deficit disorder, unspecified hyperactivity presence - ICD9: 314.00, ICD10: F98.8 (primary diagnosis) - controlled substance agreement. - PAIN PANEL, UR QUANT - LISDEXAMFETAMINE 40 MG CAPSULE 2. Medication monitoring encounter - ICD9: V58.83, ICD10: Z51.81 - PAIN PANEL, UR QUANT 3. Near syncope - ICD9: 780.2, ICD10: R55 - ecg shows ? Shortened pr. Get old records. Had holter etc. - ECG COMPLETE W INTERPRETATION - CONSULT TO CARDIOLOGY 4. Lightheaded - ICD9: 780.4, ICD10: R42 - as above - CONSULT TO CARDIOLOGY 5. Palpitations - ICD9: 785.1, ICD10: R00.2 - ECG COMPLETE W INTERPRETATION - CONSULT TO CARDIOLOGY 6. Fatigue, unspecified type - ICD9: 780.79, ICD10: R53.83 - TSH BLD - T3 BLD - T4 FREE/FREE THYROX - CBC + DIFF - COMP METABOLIC PANEL - SED RATE BEKAHERGJORGE Rush MD RTO in six weeks and prn. CNOV Observed: 07/19/2017 Status: COMPLETED Source: TERRY 2:[address] [facility] REPOSITORY Office Visit (FAMPWS) BRIAN HENAO ([id number]) 1995 M Date Time Provider Department 07/19/17 2:00 PM JUANITO RUSH During your visit today, we recorded the following information about you: Temperature Pulse Respiration Blood pressure 97.9 degrees 48/minute 12/minute 116/70 Weight Height 78 kg 1.816 m Juanito Rush MD 07/19/2017 3:29 PM Signed Patient presents with: Establish Care HPI: Patient presents today for office visit for establishing care. ADD: Current Treatment: vyvanse. Using prn. Feels treatment is working well: Using it when he needs it at work. Helps to keep him focused. . Weight loss: No. Insomnia: No. GASTROENTEROLOGY complaints: No. Tremor: No. Mood disorder: No. Chest pain/Palpitations: Initially had it while on it. Had cardiac work up. Went away Aware of risks associated with controlled substance use: Yes. Hx of misuse/abuse/diversion of meds: Yes. OARRS website checked and validated. All prescriptions have been APPROPRIATELY filled. No suspicious activity was identified.- 07/19/2017 by Juanito Rush MD Has not taken any in a while. Relates having some episodes of dizziness or lightheadedness on and off for some time. Not actually syncopal. Never dizzy while laying down. No headaches. Eyes feel ANDquot;funnyANDquot; at times. Feet occasionally feel edematous Was seen in er once and was told his thyroid was questionably abnormal No focal numbness or weakness. Derm: has recurrent acne type cysts around ears. MEDICATIONS: Current Outpatient Prescriptions: lisdexamfetamine (VYVANSE) 40 mg capsule Take 40 mg by mouth as needed (pt reports prn). No current facility-administered medications for this visit. ALLERGIES: ALLERGIES No Known Allergies PAST MEDICAL HISTORY Diagnosis Date - ADHD No past surgical history on file. FAMILY HISTORY Problem Relation Age of Onset - Alcohol/Drug Brother - Colon Cancer Maternal Grandfather - Diabetes Maternal Grandfather - Coronary Artery Disease Maternal Grandfather - Heart Maternal Grandfather - Hypertension Maternal Grandfather - Diabetes Maternal Grandmother - Stroke Maternal Grandmother - Hypertension Brother Social History Marital status: Single Spouse name: Years of education: Number of children: Social History Main Topics Smoking status: Light Tobacco Smoker Packs/day: 0.00 Years: 0.00 Types: Cigarettes Smokeless status: Never Used Alcohol use: No Comment: occasionally Drug use: No Reviewed current medications, allergies, past medical history, surgical history, family history and social history today. REVIEW OF SYSTEMS All other reviewed and negative other than HPI. HEALTH MAINTENANCE: Reviewed health maintenance issues today and recommended the following in detail. - believes all of his immunizations are up to date. VITALS: BP 116/70 Pulse (!) 48 Temp 36.6 ?C (97.9 ?F) Resp 12 Ht 181.6 cm (5' 11.5ANDquot;) Wt 78 kg (172 lb) BMI 23.65 kg/m2 Last 4 Encounter Wt Readings: Date: Wt: 07/19/2017 78 kg (172 lb) (74 %, Z= 0.64)* 08/12/2014 72.6 kg (160 lb) (78 %, Z= 0.76)* PHYSICAL EXAMINATION: General appearance: Well appearing, alert, in no acute distress, well-hydrated, well nourished. Skin: Skin color, texture, turgor normal, no suspicious rashes or lesions. Several cysts around ears. Head: Normocephalic, no masses, lesions, tenderness or abnormalities Eyes: Anicteric sclera. Pupils are equally round and reactive to light. Extraocular movements are intact. No nystagmus Ears: External ears normal, canals clear Nose/Sinuses: Nares normal, septum midline, mucosa normal, no drainage or sinus tenderness Oropharynx: Lips, mucosa, and tongue normal, teeth and gums normal, oropharynx normal Neck: Supple, no adenopathy; thyroid symmetric, normal size, no bruits Lungs: Lungs clear to auscultation. No wheezing, rhonchi, rales Heart: RRR without murmur, gallop, or rubs. No ectopy Abdomen: Normal abdominal exam, Abdomen soft, non-tender. Bowel sounds normal. No masses, organomegaly Extremities: No deformities, edema, skin discoloration, clubbing or cyanosis. Good capillary refill. Musculoskeletal: No joint swelling, deformity, or tenderness Peripheral pulses: Normal Neuro: Gait normal. Reflexes normal and symmetric. Sensation grossly intact. ASSESSMENT/PLAN: 1. Attention deficit disorder, unspecified hyperactivity presence - ICD9: 314.00, ICD10: F98.8 (primary diagnosis) - controlled substance agreement. - PAIN PANEL, UR QUANT - LISDEXAMFETAMINE 40 MG CAPSULE 2. Medication monitoring encounter - ICD9: V58.83, ICD10: Z51.81 - PAIN PANEL, UR QUANT 3. Near syncope - ICD9: 780.2, ICD10: R55 - ecg shows ? Shortened pr. Get old records. Had holter etc. - ECG COMPLETE W INTERPRETATION - CONSULT TO CARDIOLOGY 4. Lightheaded - ICD9: 780.4, ICD10: R42 - as above - CONSULT TO CARDIOLOGY 5. Palpitations - ICD9: 785.1, ICD10: R00.2 - ECG COMPLETE W INTERPRETATION - CONSULT TO CARDIOLOGY 6. Fatigue, unspecified type - ICD9: 780.79, ICD10: R53.83 - TSH BLD - T3 BLD - T4 FREE/FREE THYROX - CBC + DIFF - COMP METABOLIC PANEL - SED RATE WESTERGREN Juanito Rush MD RTO in six weeks and prn. Referring Provider: SELF [[id number]] Allergies As of Date: 07/19/2017 (No Known Allergies) Date Reviewed: 07/19/2017 Reviewed by: Albania Ramires LPN - Fully Assessed Reason for Visit: Establish Care [42] Primary Visit Diagnosis:Attention deficit disorder, unspecified hyperactivity presence [F98.8] Other Visit Diagnoses:Medication monitoring encounter [Z51.81] Near syncope [R55] Lightheaded [R42] Palpitations [R00.2] Fatigue, unspecified type [R53.83] Skin cyst [L72.9] Order(s):PAIN PANEL, UR QUANT [SQUQNTPP] Order #: [id number] lisdexamfetamine (VYVANSE) 40 mg capsuleTake 1 capsule by mouth as needed (pt reports prn) for up to 30 days.Disp: 30 capsuleRfl: 0 TSH BLD [SQTSH] Order #: [id number] FUTURE T3 BLD [SQT3] Order #: [id number] FUTURE T4 FREE/FREE THYROX [SQFT4] Order #: [id number] FUTURE CBC + DIFF [SQCBCDIF] Order #: [id number] FUTURE COMP METABOLIC PANEL [SQCMP] Order #: [id number] FUTURE SED RATE WESTERGREN [SQWSR] Order #: [id number] FUTURE ECG COMPLETE W INTERPRETATION [ECG01] Order #: [id number] FUTURE CONSULT TO CARDIOLOGY [900] Order #: [id number]: 1 CONSULT TO DERMATOLOGY [900] Order #: [id number]: 1 Prescriptions as of 07/19/2017 Sig: LISDEXAMFETAMINE 40 MG CAPSULE Take 1 capsule by mouth as ne* Problem List As Of Date: 07/19/2017 (None) Prescriptions ordered this encounter Disp Refills Start End LISDEXAMFETAMINE 40 MG CAPSULE 30 c* 0 07/19/2017 08/18/2017 Class: Print RX Route: ORAL Sig: Take 1 capsule by mouth as needed (pt reports prn) for up to 30 days. Medications Discontinued During This Encounter lisdexamfetamine (VYVANSE) 40 mg cap* 07/19/2017 Class: Historical Med Route: ORAL Sig: Take 40 mg by mouth as needed (pt reports prn). Disc: Reason for discontinue is not on file. Disposition: Return in about 6 weeks (around 08/30/2017). Follow-up and Disposition History Recorded Classic SmartForms filed during this visit: Extended Vitals Letter Text [facility] Controlled Substance Agreement Purpose The purpose of this agreement is to prevent misunderstandings about certain medicines you will be taking for pain management. It will help both you and your doctor to comply with laws regarding controlled pharmaceuticals. I understand that this agreement is essential to the trust and confidence necessary in a doctor/patient relationship and that my doctor undertakes to treat me based on this agreement. AGREEMENT I, Brian Henao, understand that if I break this agreement, my doctor will stop prescribing these pain-control medicines. In this case, my doctor will taper off the medicine over a period of several days, as necessary, to avoid withdrawal symptoms. A drug-dependence treatment program may be recommended. In certain cases, you may be terminated as a patient. I will communicate fully with my doctor about the character and intensity of my pain, its effect on my daily life, and how well the medicine is helping to relieve the pain. I will not use any illegal controlled substances, including marijuana, cocaine, etc. Random urine and/or serum toxicology screens may be requested; this testing may be unannounced and occur at any time. I agree that I will submit to a blood or urine test if requested by my doctor to determine my compliance with my program of pain control medicine. I will not share, sell or trade my medication with anyone. I will not attempt to obtain any controlled substance from any other doctor, other than a covering physician. I will safeguard my pain medicine from loss or theft. Lost or stolen medicines may not be replaced. I agree that refills of my prescriptions for pain medicine will be made only at the time of an office visit or during regular office hours. No refills will be available on evenings or weekends. I authorize the doctor and my pharmacy to cooperate fully with any city, state or federal law enforcement agency, including this state's Board of Pharmacy, in the investigation of any possible misuse, sale, or other diversion of my medication. I authorize my doctor to provide a copy of this Agreement to my pharmacy. I agree to waive any applicable privilege or right of privacy or confidentiality with respect to these authorizations. I agree that I will use my medicine at a rate no greater than the prescribed rate and that use of my medicine at a greater rate may result in my being without medication for a period of time. If legal authorities have questions concerning treatment, for example, if a patient were obtaining medications at several pharmacies, all confidentiality is waived and the authorities may be given full access to the [facility] Records of narcotic administration. I agree to follow these guidelines and they have been fully explained to me. All of my questions and concerns regarding treatment have been answered. A copy of this document has been given to me. Pharmacy: Location: Phone number: Patient: Date: July 19, 2017 Brian Henao [id number] Physician: Date: July 19, 2017 Juanito Rush MD Information regarding Controlled Substance Prescriptions: Please read carefully. Strong pain medications such as Tramadol, Narcotic analgesics are helpful to control a severe pain when it is difficult to control with simple pain medications, but they can cause problems if taken for too long. The goal of treatment is to control the pain to a level where you will be able to function. The long-term use of such substances as opioids (narcotic analgesics), benzodiazepine tranquilizers, and barbiturate sedatives is controversial because of uncertainty regarding the extent to which they actually improve the lives of those receiving them in manager ship use. Some people receive prolonged benefit and others do not. Some may actually have an increase in pain. There is also the risk of developing addiction or causing relapse of addiction. It is important that you know the side effects of these medications including: Excessive doses suppress breathing and may be fatal. This is especially true if the person is a child. Drowsiness and impaired concentration may create danger with driving or operating machinery, especially shortly after dose increases. Some people describe lasting feelings of reduced alertness and concentration. Toxicity is much more likely if the drug is combined with tranquilizers or sedatives, so the user must never do this Constipation is most common. Stool softeners or other agents are then required. If these drugs are taken regularly during the latter months of , the child will probably be born physically dependent on them. Many deaths have occurred because of abuse of these medications, often by people other than those for whom they were prescribed, or because of combining them with other substances. Therefore, strict accountability is necessary. The following policies are agreed to by the treatment recipient. Selling or giving away this medication is against the law and may cause harm or to the person who receives it. Thus you must never give controlled substances to anyone else, even if he or she has the same symptoms as you. It is equally important that you secure your medications so that no one else can access them. Workers in the home, friends of children, and visitors can be expected to look through medicine cabinets and take drugs of abuse. Medications should not be left in sight in hotel rooms, unoccupied cars, etc. Should a child accidentally ingest one of your pills, obtain emergency medical care immediately. A good rule of thumb is not to put the medication any place you would not leave $1000 in martin. A small, inexpensive safe or lockable cabinet is a good idea. Because diverted / stolen opioids are causing an epidemic of deaths in the [place], lost or stolen medications will not be replaced. It is your responsibility to safeguard them. In addition [place] law requires certain procedures for the prescription of controlled substances which will be discussed. Encounter Status:Closed by JUANITO RUSH MD on 07/19/17 12 LEAD ELECTROCARDIOGRAM Observed: 04/06/2017 Status: F Source: ESTELLINE 3:08 PM [facility] REPOSITORY [facility] Cardiovascular Services [address] [place] [address] 12 Lead EKG 04/02/17 1400 MR#: [id number] Acct: [id number] Name: BRIAN HENAO Rep #: [id number] : 1995 21 From: Kamron Pichardo MD Attending Dr: Status: DEP ER Ordering Dr: Trevor Cary MD Date: 04/02/17 Location: ED Sex: M C Admitted: Test Reason : GEN ILLNESS Blood Pressure : / mmHG Vent. Rate : 061 BPM Atrial Rate : 061 BPM P-R Int : 124 ms QRS Dur : 104 ms QT Int : 420 ms P-R-T Axes : 014 086 059 degrees QTc Int : 422 ms Normal sinus rhythm with sinus arrhythmia Normal ECG Confirmed by KAMRON PICHARDO MD ([id number]), visual effects editor SHADE JERNIGAN ([id number]) on 04/06/2017 3:08:17 PM Referred By: LINN Confirmed By:KAMRON PICHARDO MD 04/06/17 1508 Date Kamron Pichardo MD CC: ISRAEL FAJARDO Signed ALLERGIES ALLERGIES DATE TYPE / CODE NAME / CODE REACTION SEVERITY SOURCE 03/20/2018 Drug No Known Unknown [facility] Allergy/416 Allergies/P47262 Hospital 560937(SNOM 0388(RXNORM) Repository ED CT) Drug NO KNOWN [facility] Class/70222 ALLERGIES Main [place] 1003(SNOMED Repository CT) ENCOUNTERS ENCOUNTERS ADMIT/DISCHARGE ACCOUNT ADMITTING ENCOUNTER LOCATION SOURCE NUMBER CLASS 03/28/2018/03/29/20 [id number] Ambulatory [address] Repository 03/20/2018/03/20/20 [id number] [facility] Rep[facility] 03/12/2018/03/12/20 [id number] Emergency Shahab Shahab[address] ing:ED Repository 10/07/2017 [id number] Ambulatory [facility] ing:LAB Repository 10/04/2017/10/05/19 [id number] Emergency Shahab[address] ing:ED Repository 10/04/2017 [id number] Ambulatory BMSBuilding:B Shahab MS.CF.WSA [facility] Repository 09/30/2017/10/01/19 [id number] Emergency Parrish[address] ing:ED Repository 07/30/2017/07/31/19 [id number] Ambulatory [address] Repository 07/19/2017/07/20/19 [id number] Ambulatory [address] Repository 07/19/2017/07/21/19 [id number] Ambulatory [address] Repository 04/02/2017/04/02/20 [id number] Emergency [address] ing:ED Repository PAYERS PAYERS ENCOUNTER GUARANTOR PAYER SUBSCRIBER SOURCE 03/20/2018 BRIAN S Primary BRIAN S Shahab [id number] Insurance:CARESOURCEP [facility] Number: [id number] [id number] Repository [address]Arw: ([phone]) Date:2018-03-20P O [phone] () [address]ATTN: [place] [address]FS: 03/20/2018 Secondary NOT GIVENUNK Parrish Insurance:SELF PAY [facility] Number: Effective Repository Date:2018-03-20 03/12/2018 BRIAN S Primary BRIAN S Parrish [id number] Insurance:CARESOURCEP [facility] Number: [id number] [id number] Repository [address]Ezz: ([phone]) Date:2018-03-12P O [phone] () [address]ATTN: [place] [address]PD: 03/12/2018 Secondary NOT GIVENUNK Parrish Insurance:SELF PAY [facility] Number: Effective Repository Date:2018-03-12 10/07/2017 BRIAN S Primary BRIAN S Parrish [id number] Insurance:CARESOURCEP SMITHDOB: [facility] Number: [id number] [id number] Repository [address]Uwx: ([phone]) Date:2017-10-07P O [phone] () [address]ATTN: [place] [address]EL: 10/07/2017 Secondary NOT GIVENUNK Shahab Insurance:SELF PAY [facility] Number: Effective Repository Date:2017-10-07 10/04/2017 BRIAN S Primary BRIAN S Shahab [id number] Insurance:CARESOURCEP SMITHDOB: [facility] Number: [id number] [id number] Repository [address]Ohx: ([phone]) Date:2017-10-04P O [phone] () [address]ATTN: [place] [address]QV: 10/04/2017 Secondary NOT GIVENUNK Parrish Insurance:SELF PAY [facility] Number: Effective Repository Date:2017-10-04 10/04/2017 BRIAN S Primary NOT GIVENUNK Shahab [id number] Insurance:SELF PAY [address] Number: Effective Repository [phone]: ([phone]) Date:2017-10-04 [phone] () 09/30/2017 BRIAN S Primary BRIAN S Shahab [id number] Insurance:CARESOURCEP SMITHDOB: [facility] Number: [id number] [id number] Repository [address]Ibw: (330) Date:2017-09-30P O [phone] () [address]ATTN: [place] [address]WB: 09/30/2017 Secondary NOT GIVENUNK Parrish Insurance:SELF PAY [facility] Number: Effective Repository Date:2017-09-30 04/02/2017 Brian Henao6272 Primary Brian OrionB: Parrish [facility] Insurance:CARESOURC [id number].[facility] Number: [facility] [address]Uay: [phone] [id number] Repository [phone] () Date:2017-04-02P O [address]ATTN: [place] [address]BO: 04/02/2017 Secondary NOT GIVENUNK Shahab Insurance:SELF PAY [facility] Number: Effective Repository Date:2017-04-02
== END 2018-03-20 09:27 | disposition home or self-care (01) ==
LOC: ED 08:55
PROVIDERS: Emergency Provider Emergency Medicine; Family Provider Family Medicine; PCP Family Medicine
DX: M25.512 Pain in left shoulder (principal); Z72.0 Tobacco use
CPT/HCPCS: 99282

== ENCOUNTER 2018-12-26 15:37 | Emergency (ER) | payer MEDICAID, SELFPAY ==
[2018-12-26 15:37] VITALS: BP 165/74; PULSE 86; RESP 16; TEMP 36.9; O2SAT 96; BMI 25.9
--- NOTE | 2018-12-26 15:45 | RAD_ITS ---
STUDY: X-RAY - RIGHT HAND REASON FOR EXAM: Male, 23 years old. Pain following injury. TECHNIQUE: 3 view(s) of the hand. COMPARISON: None. FINDINGS: Normal radiocarpal articulation. Normal distal radioulnar joint. Normal visualized carpal bones. Normal carpal articulations Normal carpometacarpal articulation of the thumb. Normal second through fifth carpometacarpal joints. Normal metacarpi. Normal metacarpophalangeal joint of the thumb. Normal interphalangeal joint of the thumb. Normal proximal and distal phalanges of the thumb. Normal metacarpophalangeal joints of the second through fifth fingers. Normal proximal and distal interphalangeal joints of the second through fifth fingers. Normal phalanges of the second through fifth fingers. The soft tissue structures are unremarkable. RAD/Hand Min 3 Views IMPRESSION: Normal x-ray examination of the hand. Electronically Signed: Niles Dudley, at 15:59 EDT , Service support ,
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
[2018-12-26] MEDS: HYDROcodone Bitartrate/Apap 5/325 Tablet PO (16:37)
== END 2018-12-26 17:05 | disposition home or self-care (01) ==
LOC: ED 16:28
PROVIDERS: Emergency Provider Emergency Medicine; Family Provider Family Medicine; PCP Family Medicine
DX: S60.221A Contusion of right hand, initial encounter (principal); W22.09XA Striking against other stationary object, initial encounter; Y93.89 Activity, other specified; Y92.9 Unspecified place or not applicable; F17.200 Nicotine dependence, unspecified, uncomplicated
CPT/HCPCS: 73130; 99282

== ENCOUNTER 2019-05-11 21:28 | Emergency (ER) | payer MEDICAID, SELFPAY ==
[2019-05-11 21:29] VITALS: BP 158/96; PULSE 116; RESP 16; TEMP 37.5; O2SAT 97; BMI 26.4
[2019-05-11 21:57] VITALS: BP 149/94; PULSE 99; RESP 18; O2SAT 98
--- NOTE | 2019-05-11 22:03 | EKG12_ITS ---
Test Reason : CP Blood Pressure : / mmHG Vent. Rate : 102 BPM Atrial Rate : 102 BPM P-R Int : 134 ms QRS Dur : 098 ms QT Int : 348 ms P-R-T Axes : 075 089 092 degrees QTc Int : 453 ms Sinus tachycardia Nonspecific ST abnormality Abnormal ECG Confirmed by KRYSTEN SHEPPARD, MANUEL ([id number]), material expeditor DENNIS RUSSELL ([id number]) on 05/14/2019 12:14:03 PM Referred By: NEFTALY Confirmed By:MANUEL BASHIR MD
--- NOTE | 2019-05-11 22:50 | ED.VIS.GEN ---
History of Present Illness Chief Complaint: Chest Pain Informant: Patient Onset: Today Narrative: Patient presents with palpitations reported chest discomfort 3 hours prior to arrival. He states he drank to twisted teas which does have alcohol in it and a lot of sugar. Denies lightheaded symptoms. States that had palpitations in the past with work-ups including Holter monitors have been negative. States symptoms usually would subside however this is lasting longer than normal. No nausea or vomiting. He reports THC use usually in the mornings last use this morning. Denies any other recreational drug use. Denies any energy drinks. Prior similar symptoms: Yes Past Medical History - Allergies and Home Meds Allergies/Adverse Reactions: Allergies No Known Allergies Allergy (Verified 05/11/19 21:29) Primary Care Physician: Khris Rush MD [Primary Care Provider] - Past Medical History: None Surgical History: no surgical history Smoking Status: Current every day smoker Review of Systems All systems negative except as indicated General: Denies: Chills, Fever, Sweats Eyes: Denies: Visual changes - bilaterally, Diplopia ENT: Denies: Rhinorrhea, Sore throat Cardiovascular: Reports: Chest pain, Palpitations, Heart racing Respiratory: Denies: Dyspnea, Cough, Dyspnea on exertion Gastrointestinal: Denies: Abdominal pain, Nausea, Vomiting, Diarrhea, Melena, Hematochezia Genitourinary: Denies: Dysuria, Hematuria, Frequency Musculoskeletal: Denies: Back pain, Extremity Pain Skin: Denies: Rash, Wounds Neurological: Denies: Headache, Weakness, Numbness Physical Exam Vital Signs/Narrative: Vital Signs Temp Pulse Resp BP Pulse Ox 05/11/19 21:57 99 18 149/94 H 98 05/11/19 21:29 99.5 F H 116 H 16 158/96 H 97 Inital Vital Signs reviewed: Yes General: Well nourished, Well developed, No Acute Distress, - - anxious Head: Normocephalic, Atraumatic Eyes: Perrl, EOMI ENT: Moist mucous membranes, No rhinorrhea Neck: Supple, Nontender Cardiovascular: Regular rhythm, No murmurs, Tachycardia Respiratory: No distress, CTA bilaterally, Chest nontender Abdomen: Soft, Nontender, Nondistended, Normal bowel sounds Back: Nontender, Normal Inspection Extremities: Nontender, No edema Skin: Normal color, No rash Neurological: Alert, Oriented x3, Cranial nerves II-XII grossly intact, Normal Strength, Normal Sensation Psychological: Normal affect, Normal Mood Diagnostic/Tx/Re-eval Abnormal Lab Results 05/11/19 23:08 Urine Opiates Screen NEGATIVE Urine Methadone Screen NEGATIVE Ur Barbiturates Screen NEGATIVE Ur Phencyclidine Scrn NEGATIVE Ur Amphetamines Screen NEGATIVE U Methamphetamin-MDMA NEGATIVE U Benzodiazepines Scrn NEGATIVE Urine Cocaine Screen NEGATIVE U Cannabinoids Screen POSITIVE H Ur Drug Screen Comment - EKG Initial EKG Interpretation: Sinus Rhythm - Sinus rate of 102, no ST or T wave changes, QTC 453. - Medical Decision Making Patient was slightly tachycardic on arrival however with his age heart rate more likely should be in the 70s or even lower, with his history with his drinks likely caffeine induced palpitations. Due to anxiety symptoms he was given Ativan x1 in the ED he was monitored. Heart rate down to the 90s, reevaluation he reports still concerns tachycardia for urine was sent to rule out any stimulants which was negative. On reevaluation Heart rate in the 80s with improving symptoms. Patient more reassured. He is discharged with his ride. ED Disposition - Plan for ED Patient: Disposition: Home or Assisted Living Diagnosis: Palpitations Instructions: Palpitations Referrals: Khris Rush MD [Primary Care Provider] - 5-7 Days Additional Instructions: Avoid significant caffeine use as it may cause your symptoms.
[2019-05-11] MEDS: LORazepam 1 MG Tablet PO (23:12)
[2019-05-11 23:27] LABS: Amphetamine Urine VISTA NEGATIVE (<1000 ng/mL); Barbiturate Urine VISTA NEGATIVE (< 200 ng/mL); Benzodiazepine Urine VISTA NEGATIVE (< 200 ng/mL); Cocaine Urine VISTA NEGATIVE (< 300 ng/mL); Ecstacy Urine VISTA NEGATIVE (< 500 ng/mL); Methadone Urine VISTA NEGATIVE (< 300 ng/mL); PCP Urine VISTA NEGATIVE (< 25 ng/mL); THC Urine VISTA POSITIVE (< 50 ng/mL); Vista UDS pH Range 6
[2019-05-11 23:49] VITALS: PULSE 82; RESP 16; O2SAT 95
== END 2019-05-11 23:52 | disposition home or self-care (01) ==
PROVIDERS: Emergency Provider Emergency Medicine; PCP Family Medicine
DX: R00.2 Palpitations (principal); R00.0 Tachycardia, unspecified; F17.200 Nicotine dependence, unspecified, uncomplicated
CPT/HCPCS: 80307; 93005; 99283

== ENCOUNTER 2019-12-31 12:58 | Emergency (ER) | payer MEDICAID, SELFPAY ==
[2019-12-31 13:00] VITALS: BP 151/78; PULSE 114; RESP 18; TEMP 36.5; O2SAT 97; BMI 30.9
[2019-12-31 13:03] VITALS: BP 151/78; PULSE 106; RESP 18; O2SAT 95
--- NOTE | 2019-12-31 13:28 | ED.VIS.GEN ---
History of Present Illness Chief Complaint: Abscess Informant: Patient Onset: Month(s) - 1 Context: Gradual Onset Timing: Waxes and wanes Quality: sore Location: left ear Current Severity: Moderate Maximum Severity: Moderate Worsened by: palpation Relieved by: leaving it alone, but better after expressing pus Associated Symptoms: no systemic sx/fevers. drainage from wound. Narrative: Patient concerned he may have an abscess on his face near his left ear. It has been draining and recurring for a month. He has not sought treatment only expressing stuff out of it himself. He states he did this yesterday evening and it came down in size but now it is a little bigger and seems to have recurred again. Past Medical History - Allergies and Home Meds Allergies/Adverse Reactions: Allergies No Known Allergies Allergy (Verified 12/31/19 12:59) Primary Care Physician: Khris Rush MD [Primary Care Provider] - Past Medical History: None Surgical History: no surgical history Lives: With Family Smoking Status: Current every day smoker Review of Systems General: Denies: Chills, Fever, Sweats Skin: Reports: Wounds Neurological: Denies: Headache, Weakness, Numbness Physical Exam Vital Signs/Narrative: Vital Signs Temp Pulse Resp BP Pulse Ox 12/31/19 13:03 106 H 18 151/78 H 95 12/31/19 13:00 97.7 F L 114 H 18 151/78 H 97 Inital Vital Signs reviewed: Yes General: Well nourished, Well developed, No Acute Distress Head: Normocephalic, Atraumatic Eyes: Perrl, EOMI ENT: Moist mucous membranes, No rhinorrhea, - - Tender abscess draining in 2 areas that is not involving the ear, but is on the surface of the face and sort of a horseshoe around where the earlobe is. No mastoid involvement or ear/pinna involvement proper. Neck: Supple, Nontender Skin: Normal color, No rash, - - 2 cm abscess on the face just below the left ear, see above. It is actively draining purulent material from a small hole at the anterior aspect and at the posterior aspect, with regards to the earlobe. Pus is easily expressible from both of these areas. Neurological: Alert, Oriented x3, Cranial nerves II-XII grossly intact, Normal Strength, Normal Sensation, Normal Gait Psychological: Normal affect, Normal Mood Diagnostic/Tx/Re-eval - Medical Decision Making Patient consents to me manually expressing as much out as I could which I did. Given that I think it is relatively small and adequately drained at this time, I do not think incising it on his face would be necessarily more helpful at this time. I put him on Bactrim, cleansed and dressed the wound with bacitracin, advised that he continue to express anything out of it that accumulates while the wound is open, and if it does not improve after he has been on the antibiotic for 4 doses, he may either return to the ER or follow-up with plastics as an outpatient, he was given their information at discharge as well as a prescription for Bactrim. He is comfortable with that plan. Procedures Procedure(s): Abscess drainage --left periauricular facial abscess drained manually, significant mild prerenal material as well as necrotic plugs. It was not felt that incising the area would be more helpful. No gauze was packed into it. No complications, tolerated well. ED Disposition - Plan for ED Patient: Disposition: Home or Assisted Living Diagnosis: Abscess of face Instructions: ED Abscess Incision And Drainage Prescriptions: Smz/Tmp Ds [Bactrim Ds] 1 tab PO BID #20 tab Transmission Status: Pending to [facility] Referrals: Khris Rush MD [Primary Care Provider] - Laurent Thacker MD [STAFF PHYSICIAN] - 3-5 Days if not improving
[2019-12-31] MEDS: Smz/Tmp Ds Tablet 1 TABLET PO (13:44)
[2019-12-31 13:46] VITALS: RESP 16
== END 2019-12-31 13:48 | disposition home or self-care (01) ==
LOC: ED 13:44
PROVIDERS: Emergency Provider Emergency Medicine; PCP Family Medicine
DX: L02.01 Cutaneous abscess of face (principal); F17.200 Nicotine dependence, unspecified, uncomplicated
CPT/HCPCS: 99283

== ENCOUNTER 2021-02-24 03:17 | Emergency (ER) | payer MEDICAID, SELFPAY ==
[2021-02-24 03:19] VITALS: BP 157/99; PULSE 106; RESP 20; TEMP 36.8; O2SAT 95; BMI 33.1
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
[2021-02-24] MEDS: Lidocaine 5% Patch 1 PATCH TOPICAL (04:06)
--- NOTE | 2021-02-24 04:08 | EX.ED.GENINJ ---
HPI History of Present Illness Chief Complaint: Other, Pain/Inj Informant: patient Narrative Narrative: Patient is a 25-year-old male with no significant past medical history presenting with left-sided rib pain. Patient states yesterday he fell down a flight of steps. He states they are very steep. He landed on his left side. He denies hitting his head. Denies any loss of conscious. He notes the wind was knocked out of him. He has had worsening pain over his left ribs with shortness of breath. He did take ibuprofen about 2 hours prior to arrival with minimal relief. He was concerned he could have broken something more seriously injured something is the pain is now radiating up underneath his arm. He does note that he has had a cold for the past few days. He had a temperature up to 102 ?F. He notes his nephew recently was diagnosed with RSV. He had a negative home Covid test. He has no other complaints at this time. PFSH PFSH Medical History no medical history Allergy/AdvReac Type Severity Reaction Status Date / Time No Known Allergies Allergy Verified 02/24/21 03:22 Social History Smoking Status: Current every day smoker tobacco type: cigarettes ROS ROS ED Constitutional Constitutional ED: Reports chills and fever(s) Eyes Eyes: Denies change in vision ENT ENT ED: Denies rhinorrhea or sore throat Cardiovascular Cardiovascular: Reports chest pain; Denies palpitations Respiratory/Chest Respiratory/Chest: Reports cough, dyspnea and sputum; Denies dyspnea on exertion Gastrointestinal Gastrointestinal: Denies abdominal pain, diarrhea or vomiting Musculoskeletal Musculoskeletal: Denies arthralgias or myalgias Integumentary Denies rash Neurologic Neurologic: Denies headache(s) or weakness EXAM Physical Exam Const Vital Signs: 02/24/21 03:19 02/24/21 03:23 Temperature 98.2 F Temperature Source Oral Pulse Rate 106 H Respiratory Rate 20 H Respiratory Pattern Tachypnea Blood Pressure 157/99 H Blood Pressure Mean 118 Pulse Ox 95 Oxygen Delivery Method Room Air Positive well nourished and well developed General Appearance ED: well developed HEENT atraumatic; Negative for tenderness Eyes PERRL and EOMs intact bilaterally Neck full ROM General: Negative for tenderness Chest Wall inspection of chest normal Chest Narrative: No chest wall crepitus appreciated. Tenderness palpation of the left lower lateral chest wall. No obvious deformity appreciated. Resp normal respiratory effort and clear to auscultation bilaterally Auscultation: Negative for diminished lung sounds Cardio regular rhythm and no murmurs Rate: regular rate GI normal to inspection, nondistended, normoactive bowel sounds and non-tender Back/Spine normal to inspection and no thoracic nor lumbar tenderness Extremity normal to inspection and full ROM General Extremety ED: Negative for deformity, edema or tenderness General Extremity: Negative for deformity or edema Neuro oriented x3, moves all extremities and no focal motor deficits Sensorium / Orientation: alert Psych mental status grossly normal Skin no rashes or lesions noted and no wounds MDM MDM MDM Narrative Medical decision making narrative: Patient is evaluated for left-sided rib pain. He fell down a flight of stairs yesterday. He appears nontoxic in no acute distress. Vital signs are significant for mild tachycardia and hypertension. He has no obvious injury on physical exam. He is hemodynamically stable. He is breathing comfortably. Rib series does not show any acute fracture, pneumothorax or pulmonary contusion. Patient given a Lidoderm patch in the ER does have improvement of his symptoms. Will be discharged home with incentive spirometer and instructions to use NSAIDs as well as Lidoderm patch. Counseled on risk of pneumonia with rib contusions. Patient was exposed to RSV couple days ago and I question if he could be developing a viral syndrome from that as the cause of his fever. He is afebrile in the emergency room. Patient is counseled on signs and symptoms requiring return to the emergency room. Patient verbalizes agreement and understand this plan. Patient discharged home in stable and improved condition. Radiography X-Ray: Read by ED Physician, Read by Radiologist, Normal and No Fracture Diagnostic Testing: Clinical Impression(s) from Imaging Studies Ribs w/Chest X-Ray 02/24/21 03:44 IMPRESSION: RIBS: Normal x-ray examination of the ribs. CHEST: Normal x-ray examination of the chest. Electronically Signed: Yobani Houston DO at 4:09 EST Tel , Service support , Discharge Plan Triage Chief Complaint: Other, Pain/Inj Other Complaint: General Illness ED Provider: Arin Ziegler Dx/Rx/DC Orders Clinical Impression: Contusion of rib on left side Instructions: ED Contusion, Rib Primary Care Provider: Khris Rush Referrals: Khris Rush MD [Primary Care Provider] - Activity Restrictions/Additional Instructions: Use Ibuprofen or Naprosyn as needed for pain. Use over the counter extra strength lidocaine patches as needed. Use incentive spirometer every few hours as needed to help inflate the lungs and prevent pneumonia. Disposition Disposition: Home, Self Care
[2021-02-24 04:50] VITALS: RESP 16; O2SAT 96
== END 2021-02-24 04:57 | disposition home or self-care (01) ==
PROVIDERS: Emergency Provider Emergency Medicine; PCP Family Medicine
DX: S20.212A Contusion of left front wall of thorax, initial encounter (principal); W10.9XXA Fall (on) (from) unspecified stairs and steps, initial encounter; Y93.9 Activity, unspecified; Y92.9 Unspecified place or not applicable; Y99.9 Unspecified external cause status; F17.210 Nicotine dependence, cigarettes, uncomplicated
CPT/HCPCS: 71101; 99282

== ENCOUNTER → 2021-04-16 | Outpatient (CLI) | payer MEDICAID, SELFPAY | END | disposition home or self-care (01) | PROVIDERS: PCP Family Medicine; Visit Provider Physician Assistant Medical | DX: Z11.52 Encounter for screening for COVID-19 (principal) | CPT/HCPCS: 87635; U0003; U0005 ==

== ENCOUNTER 2024-04-21 09:56 | Emergency (ER) | payer BC, SELFPAY ==
[2024-04-21 09:58] VITALS: BP 140/93; PULSE 71; RESP 15; TEMP 36.4; O2SAT 99; BMI 28.5
--- NOTE | 2024-04-21 10:19 | RAD_ITS ---
STUDY: X-RAY - UNILATERAL RIBS ( LEFT ) WITH CHEST REASON FOR EXAM: Male, 28 years old. PAIN TECHNIQUE - RIBS: 4 view(s) of the ribs. TECHNIQUE - CHEST: Single PA view of the chest. COMPARISON: None. FINDINGS - RIBS: Normal visualized ribs without a demonstrated fracture. FINDINGS - CHEST: The lungs are clear and expanded. There is no demonstrated pleural abnormality. Normal size heart. Normal mediastinum and suad. Normal visualized pulmonary arteries. Normal visualized aortic arch and descending thoracic aorta. Normal visualized thoracic spine. Normal visualized ribs, clavicles, and shoulders. There is no demonstrated abnormality of the visualized soft tissue structures of the upper abdomen. RAD/Ribs Uni Min 3V w/PA Chest IMPRESSION: RIBS: Normal x-ray examination of the ribs. CHEST: Normal x-ray examination of the chest. Electronically Signed: Devonte Fernandes MD at 10:56 EST ,
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
[2024-04-21] MEDS: HYDROcodone Bitartrate/Apap 5/325 Tablet PO (11:35)
== END 2024-04-21 11:39 | disposition home or self-care (01) ==
LOC: ED 11:23
PROVIDERS: Emergency Provider Emergency Medicine; PCP Family Medicine; Visit Provider Emergency Medicine
DX: S29.9XXA Unspecified injury of thorax, initial encounter (principal); X58.XXXA Exposure to other specified factors, initial encounter; F17.210 Nicotine dependence, cigarettes, uncomplicated
CPT/HCPCS: 71101; 99282